=== PATIENT | male | born 1990 | race Caucasian/White ===

== ENCOUNTER 2017-03-31 20:06 | Emergency (ER) | payer SELFPAY ==
[~2017-03-31] VITALS: Ht 170.2 cm; Wt 61.0 kg
[2017-03-31 20:13] VITALS: BP 114/70
[2017-03-31] MEDS ORDERED: SODIUM CHLORIDE 0.9% 1,000 ML IV ONE (21:31)
== END 2017-03-31 22:42 | disposition left against medical advice (07) ==
LOC: ER 20:06
DX: F10.129 Alcohol abuse with intoxication, unspecified (principal); Y90.9 Presence of alcohol in blood, level not specified
CPT/HCPCS: 99283; Z7610; J7030